=== PATIENT | female | born 2005 | race Caucasian/White ===

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

== ENCOUNTER 2023-04-01 22:05 | Emergency (ER) | payer MEDICAID ==
[~2023-04-01] VITALS: Ht 160 cm; Wt 74.0 kg
[~2023-04-01 22:05] MED LIST: OFLO5DRO4 RIGHT EAR
[2023-04-01 22:54] VITALS: BP 130/89; O2SAT 98
[2023-04-02 00:16] LABS: CLARITY URINE CLOUDY (CLEAR); COLOR URINE YELLOW (YELLOW); KETONES URINE TRACE (NEGATIVE); LEUKOCYTE ESTERASE URINE 3+ (NEGATIVE); NITRITE URINE NEGATIVE (NEGATIVE); OCCULT BLOOD URINE TRACE (NEGATIVE); PROTEIN URINE 1+ (NEGATIVE); SPECIFIC GRAVITY URINE 1.021 (1.005-1.030)
[2023-04-02] MEDS ORDERED: NITR-87 MT (00:28)
[2023-04-02] MEDS ORDERED: NITROFURANTOIN 100MG M/M CAPSULE PO ONE (00:45)
[2023-04-02 00:55] VITALS: PULSE 71; RESP 17; TEMP 98.3
== END 2023-04-02 00:55 | disposition home or self-care (01) ==
LOC: ER 22:30
DX: N39.0 Urinary tract infection, site not specified (principal)
CPT/HCPCS: 81003; 81025; 87077; 87186; 99283

== ENCOUNTER 2024-12-25 20:31 | Emergency (ER) | payer MEDICAID ==
[~2024-12-25] VITALS: Ht 160 cm; Wt 79.0 kg
[~2024-12-25 20:31] MED LIST changes: +NITR-87 MT
[2024-12-25 20:35] VITALS: O2SAT 100
[2024-12-25 21:06] VITALS: BP 150/96; PULSE 61; RESP 18; TEMP 36.8; O2SAT 99
== END 2024-12-25 23:00 | disposition home or self-care (01) ==
LOC: ER 20:31
DX: R20.2 Paresthesia of skin (principal)
CPT/HCPCS: 99281